=== PATIENT | female | born 1995 | race African-American/Black ===

== ENCOUNTER 2024-04-29 11:32 | Emergency (ER) | payer OTHER ==
[2024-04-29 11:46] VITALS: BP 118/55; PULSE 108; RESP 22; TEMP 98.6; BMI 49.1
[2024-04-29] MEDS ORDERED: ALBUTEROL SO4 2.5/IPRATROPIUM 0.5 INH SOL 3 ML VIAL.NEB. NEB ONE (12:09)
[2024-04-29] MEDS: ALBUTEROL SO4 2.5/IPRATROPIUM 0.5 INH SOL 3 ML VIAL.NEB. NEB ONE (12:12)
[2024-04-29] MEDS ORDERED: ACETAMINOPHEN 325 MG TABLET (FP) ONE (12:42)
[2024-04-29] MEDS: ACETAMINOPHEN 325 MG TABLET (FP) PO ONE (12:43)
[2024-04-29 12:53] LABS: THROAT:GRP A STREP NOT DETECTED (NOTDETECTED)
== END 2024-04-29 14:00 | disposition home or self-care (01) ==
LOC: JERFT 11:32
PROC: 3E0F7GC Introduction of Other Therapeutic Substance into Respiratory Tract, Via Natural or Artificial Opening (ICD-10-PCS; principal; 2024-04-29)
DX: O99.513 Diseases of the respiratory system complicating pregnancy, third trimester (principal); J10.1 Influenza due to other identified influenza virus with other respiratory manifestations; O99.891 Other specified diseases and conditions complicating pregnancy; H66.91 Otitis media, unspecified, right ear; R05.9 Cough, unspecified; R09.81 Nasal congestion; R19.7 Diarrhea, unspecified; Z20.822 Contact with and (suspected) exposure to COVID-19; Z3A.27 27 weeks gestation of pregnancy
CPT/HCPCS: 0241U-QW; 87651; 99284-25

== ENCOUNTER 2024-09-20 06:36 | Observation (INO) | payer OTHER ==
[2024-09-20] MEDS ORDERED: ACETAMINOPHEN INJECTION 100 ML ONE (08:11)
[2024-09-20] MEDS ORDERED: ONDANSETRON 4 MG/2 ML VIAL ONE (08:11)
[2024-09-20] MEDS: ACETAMINOPHEN 1000 MG/100 ML BAG IVPB ONE (08:28)
[2024-09-20] MEDS: SODIUM CHLORIDE 0.9% 500 ML INFUS.BAG IV ONE (08:28)
[2024-09-20] MEDS: ONDANSETRON 4 MG/2 ML VIAL IVPB ONE (08:29)
[2024-09-20 09:21] LABS: CO2 23.0 mmol/L (21-32); GLUCOSE,RANDOM 99.0 mg/dL (74-106)
[2024-09-20 09:24] LABS: CREATININE 1.0 mg/dL (0.55-1.3); SGOT/AST 161.0 U/L (15-37); SGPT/ALT 124.0 U/L (13-61)
[2024-09-20 09:25] LABS: TOT PROT 7.7 g/dl (6.4-8.2)
[2024-09-20 09:27] LABS: ALK PHOS 125.0 U/L (45-117)
[2024-09-20] MEDS ORDERED: PIPERACILLIN/TAZOB 3.375 GM 3.375 GM/50 ML BAG IVPB ONE (10:13)
[2024-09-20 10:19] LABS: ABSOLUTE IMMATURE GRANULOCYTES 0.02 x10^3/uL (0.0-0.031); BASOPHILS # 0.04 x10^3/uL (0.01-0.08); EOSINOPHIL % 1.1 % (0.7-5.8); EOSINOPHILS # 0.09 x10^3/uL (0.04-0.36); MCHC 31.1 g/dl (32.2-35.5); MEAN CELL VOLUME 86.3 fl (79.4-94.8); MEAN PLT VOLUME 10.5 fl (9.4-12.3); MONOCYTE # 0.58 x10^3/uL (0.24-0.86); MONOCYTE % 7.3 % (4.7-12.5); RDW 14.6 % (12.1-16.5)
[2024-09-20 10:26] LABS: INR 0.98 (0.83-1.09); PROTHROMBIN TIME (PATIENT) 10.7 SEC (9.7-13.0)
[2024-09-20 10:29] LABS: ACTIVATED PTT 35.0 SECONDS (25.2-36.5)
[2024-09-20] MEDS: PIPERACILLIN/TAZOB 3.375 GM 3.375 GM in DEXTROSE 5%-WATER - 50 ML IVPB ONE (10:32)
[2024-09-20] MEDS: ACETAMINOPHEN 1000 MG/100 ML BAG IVPB SCH (16:27)
[2024-09-20 23:24] VITALS: BMI 51.6
[2024-09-21] MEDS ORDERED: BUPIVACAINE HCL/PF 0.25% (2.5MG/ML) 10 ML VIAL ONE ×2 (10:08→13:46)
[2024-09-21 10:27] LABS: MCHC 30.5 g/dl (32.2-35.5); MEAN CELL VOLUME 87.1 fl (79.4-94.8); MEAN PLT VOLUME 11.0 fl (9.4-12.3); RDW 14.7 % (12.1-16.5)
[2024-09-21] MEDS ORDERED: ROCURONIUM BROMIDE 50 MG/5 ML SYRINGE ONE (10:35)
[2024-09-21] MEDS ORDERED: MIDAZOLAM HCL 2 MG/2 ML SINGLE DOSE VIAL ONE (10:35)
[2024-09-21] MEDS ORDERED: SUCCINYLCHOLINE CHLORIDE 200 MG/10 ML SYRINGE ONE (10:35)
[2024-09-21] MEDS ORDERED: PROPOFOL 20 ML ONE ×2 (10:35→11:04)
[2024-09-21] MEDS ORDERED: ONDANSETRON 4 MG/2 ML VIAL IVPUSH PRN (10:44)
[2024-09-21] MEDS ORDERED: LACTATED RINGERS SOLUTION 1,000 ML IV SCH (10:45)
[2024-09-21 11:02] LABS: CO2 27.0 mmol/L (21-32); GLUCOSE,RANDOM 83.0 mg/dL (74-106)
[2024-09-21 11:04] LABS: CREATININE 0.8 mg/dL (0.55-1.3)
[2024-09-21 11:05] LABS: SGOT/AST 136.0 U/L (15-37); SGPT/ALT 211.0 U/L (13-61); TOT PROT 7.0 g/dl (6.4-8.2)
[2024-09-21 11:06] LABS: ALK PHOS 120.0 U/L (45-117)
[2024-09-21] MEDS ORDERED: DEXAMETHASONE SOD PHOSPHATE 4 MG/1 ML VIAL ONE (11:18)
[2024-09-21] MEDS ORDERED: ONDANSETRON 4 MG/2 ML VIAL ONE ×2 (11:18→12:30)
[2024-09-21] MEDS ORDERED: cefOXitin SODIUM 2 GM VIAL (RESTRICTED TO ID) IVPB ONE ×2 (11:26→13:56)
[2024-09-21] MEDS: BUPIVACAINE HCL/PF 0.25% (2.5MG/ML) 10 ML VIAL IJ ONE ×2 (11:27)
[2024-09-21] MEDS ORDERED: HEPARIN NA (PORCINE) 5,000 UNITS/ML 1ML VIAL ONE (11:27)
[2024-09-21] MEDS: cefOXitin SODIUM 2 GM VIAL (RESTRICTED TO ID) IVPB ONE (11:29)
[2024-09-21] MEDS ORDERED: NEOSTIGMINE METHYLSULFATE 0.5 MG/1 ML - 10 ML MDV ONE (12:21)
[2024-09-21] MEDS ORDERED: GLYCOPYRROLATE 0.2 MG/1 ML VIAL ONE (12:22)
[2024-09-21] MEDS: LACTATED RINGERS SOLUTION 1,000 ML IV SCH (13:43)
[2024-09-21] MEDS ORDERED: INDOCYANINE GREEN 25 MG/10 ML VIAL IVPUSH ONE (13:56)
[2024-09-21] MEDS: ACETAMINOPHEN 1000 MG/100 ML BAG IVPB PRN (18:28)
[2024-09-21 20:10] VITALS: BP 130/71; PULSE 88; RESP 18; TEMP 99.1
== END 2024-09-21 23:03 | disposition home or self-care (01) ==
LOC: JER 06:36 → JERBED 10:19 → J5S 17:59
PROVIDERS: ADMIT Internal Medicine
PROC: 3E033NZ Introduction of Analgesics, Hypnotics, Sedatives into Peripheral Vein, Percutaneous Approach (ICD-10-PCS; principal; 2024-09-20)
PROC: 3E0337Z Introduction of Electrolytic and Water Balance Substance into Peripheral Vein, Percutaneous Approach (ICD-10-PCS; 2024-09-20)
PROC: 3E033GC Introduction of Other Therapeutic Substance into Peripheral Vein, Percutaneous Approach (ICD-10-PCS; 2024-09-20)
DX: K80.10 Calculus of gallbladder with chronic cholecystitis without obstruction (principal); R74.01 Elevation of levels of liver transaminase levels; J45.909 Unspecified asthma, uncomplicated; R10.13 Epigastric pain; R11.10 Vomiting, unspecified; R07.89 Other chest pain
CPT/HCPCS: 36415; 76705-TC; 80053; 83690; 83735; 84703; 85025; 85027; 85610; 85730; 86850; 86900; 86901; 88304-TC; 93005; 93010; 94760; 96361; 96374; 96375; 96376; 99285-25; G0378